=== PATIENT | male | born 1970 | race Caucasian/White ===

== ENCOUNTER 2024-11-18 18:21 | Emergency (ER) | payer SELFPAY ==
[2024-11-18 18:23] VITALS: BP 106/85
[2024-11-18 18:52] LABS: Hematocrit 42.1 % (39.0-52.0); Hemoglobin 14.9 g/dL (13.0-18.0); Mean Corp Hgb Conc. 35.4 g/dL (33.0-37.0); Mean Corpuscular Volume 80.0 fL (80.0-94.0); Nucleated Red Blood Cells % 0 % (-); Platelet Count 183 10^3/uL (130-400); Red Cell Dist. Width 12.9 % (11.5-14.5)
[2024-11-18 19:05] VITALS: BMI 33.7
[2024-11-18 19:07] LABS: COVID-19 Antigen Negative (Negative)
[2024-11-18 19:10] VITALS: BP 131/87
[2024-11-18 19:19] LABS: ALT (SGPT) 44 U/L (0-50); AST (SGOT) 38 U/L (17-59); Albumin 4.5 g/dl (3.5-5.0); Alkaline Phosphatase 71 U/L (38-126); Blood Urea Nitrogen 11 mg/dl (9-20); Calcium 8.9 mg/dl (8.4-10.2); Carbon Dioxide 21 mmol/L (22-30); Chloride 103 mmol/L (98-107); Estimated Creatinine Clearance > 125 ml/min; Glucose 163 mg/dl (70-99); Potassium 3.9 mmol/L (3.5-5.1); Sodium 133 mmol/L (135-145); Total Protein 7.2 g/dl (6.3-8.2); eGFR > 60.00
[2024-11-18] MEDS: ATIVAN 0.5 MG PO (20:14)
[2024-11-18] MEDS: TORADOL 30 MG IV (20:14)
[2024-11-18] MEDS: NSS 500 IV (20:16)
[2024-11-18 21:00] VITALS: BP 125/81
--- NOTE | 2024-11-18 21:18 | ED.GENMED ---
History of Present Illness
<Kiana Moody NP - Last Filed: 11/20/24 23:37>
General
Chief Complaint: Fever
Source: patient
Exam Limitations: none
Time Seen by Provider: 11/18/24 19:29
Nursing documentation reviewed up to this point in time: agreed with
History of Present Illness
History of Present Illness:
Patient to ED with report of weakness, chills, diaphoresis, headache. States his and son had similar symptoms earlier this week. He started to feel sick on Tuesday. reports he did not get off couch at all yesterday. Poor appetite but
drinking. Denies n/v/d. No abdominal pain. Denies SOB, CP/pressure, cough.
Past History
<Kiana oMody NP - Last Filed: 11/20/24 23:37>
Past History
ED Past Medical History: CAD, HTN, NIDDM and Psychiatric (anxiety, ADHD)
ED Past Surgical History: Cardiac (stents)
Review of Systems
<Kiana Moody NP - Last Filed: 11/20/24 23:37>
Review of Systems
Allergies reviewed?: Yes
All Other Systems: ROS reviewed and negative except as documented in HPI and ROS
Constitutional: Reports fever, fatigue and chills
EENT: Reports no symptoms
Cardiac: Reports no symptoms
ABD/GI: Reports no symptoms
: Reports no symptoms
Musculoskeletal: Reports no symptoms
Skin: Reports no symptoms
Neurological: Reports headache and weakness
Psychiatric: Reports no symptoms
Phy Exam
<Kiana Moody NP - Last Filed: 11/20/24 23:37>
General Physical Exam
General Presentation: moderate distress
General age: appears stated age
General Skin: warm and dry
General Habitus: normal
General Mental: alert
General Hydration: appears well hydrated
Eye Exam
Eye Exam: PERRL, EOMI, conjunctiva normal, globe normal and other (no photophobia)
Cardiovascular Exam
Cardiovascular Exam: regular rate/rhythm and no edema
Pulmonary Exam
Pulmonary Exam: lungs clear and no respiratory distress
Gastrointestinal Exam
Gastrointestinal Exam: normal bowel sounds, non tender, soft, no organomegaly, no pulsatile mass, non distended and no cva tenderness
Neurological Exam
Neurological Exam: alert, oriented x3, CN II-XII intact, no motor deficits, no sensory deficits and speech normal
Musculoskeletal Exam
Musculoskeletal Exam: full ROM and neuro vasc intact
Skin Exam
Skin Exam: normal color, warm/dry and no rash
Psychiatric Exam
Psychiatric Exam: normal mood/affect
Course
<Kiana Moody NP - Last Filed: 11/20/24 23:37>
Orders/Labs/Results
Orders:
Orders
11/18/24 18:28
Electrocardiogram (*1) Urgent
Reason for Study: Other
Other Reason for Exam: Possible Sepsis
11/18/24 18:29
EKG- Treatment ONCE
11/18/24 18:47
COVID-19 Antigen Urgent
Source: Nasal Swab
Complete Blood Count/With Diff Urgent
Comprehensive Metabolic Panel Urgent
Lactic Acid Q4H
Comment: ON ICE, CANCEL 2ND ORDER IF FIRST LACTIC ACID LEVEL <2
INF RAPID [Influenza A+B Rapid Molecular] Urgent
BARBARA Source: Nasal Swab
Specimen Description:
11/18/24 19:57
0.9% Sodium Chloride 500 ml [Nss] 500 ml IV BOLUS
Ketorolac [Toradol] 30 mg IV NOW STA
Lorazepam [Ativan] 0.5 mg PO NOW STA
11/18/24 20:50
CT Head W/o Iv Contrast Urgent
Comment:
Reason For Exam: atypical headache
11/18/24 20:58
US Abdomen Complete/Upper Urgent
Comment:
Reason For Exam: fever, elevated Tbili
11/18/24 22:01
0.9% Sodium Chloride 1000 ml [Nss] 1,000 ml IV BOLUS
Acetaminophen [Tylenol] 1,000 mg PO NOW STA
Abnormal Lab Results
11/18/24
18:47
Absolute Neuts (auto) 6.9 H 10^3/uL
(1.4-6.5)
Absolute Lymphs (auto) 0.9 L 10^3/uL
(1.2-3.4)
Absolute Monos (auto) 0.7 H 10^3/uL
(0.1-0.6)
Neutrophils % 80.7 H %
(42.2-75.2)
Lymphocytes % 10.1 L %
(20.5-51.1)
Sodium 133 L mmol/L
(135-145)
Carbon Dioxide 21 L mmol/L
(22-30)
Creatinine 0.6 L mg/dL
(0.7-1.3)
Glucose 163 H mg/dl
(70-99)
Total Bilirubin 2.6 H mg/dl
(0.2-1.3)
11/18/24 18:47
11/18/24 18:47
Vital Signs
Initial and Last Documented VS:
Initial Vital Signs
Temp Pulse Resp BP Pulse Ox
100.4 F H 106 20 106/85 98
11/18/24 18:23 11/18/24 18:23 11/18/24 18:23 11/18/24 18:23 11/18/24 18:23
Last Documented Vital Signs
Temp Pulse Resp BP Pulse Ox
100.4 F H 72 17 103/68 96
11/18/24 18:23 11/19/24 00:00 11/19/24 00:00 11/18/24 22:39 11/18/24 22:39
<Joseph Moreland, DO - Last Filed: 11/19/24 00:04>
Orders/Labs/Results
Orders:
Orders
11/18/24 18:28
Electrocardiogram (*1) Urgent
Reason for Study: Other
Other Reason for Exam: Possible Sepsis
11/18/24 18:29
EKG- Treatment ONCE
11/18/24 18:47
COVID-19 Antigen Urgent
Source: Nasal Swab
Complete Blood Count/With Diff Urgent
Comprehensive Metabolic Panel Urgent
Lactic Acid Q4H
Comment: ON ICE, CANCEL 2ND ORDER IF FIRST LACTIC ACID LEVEL <2
INF RAPID [Influenza A+B Rapid Molecular] Urgent
BARBARA Source: Nasal Swab
Specimen Description:
11/18/24 19:57
0.9% Sodium Chloride 500 ml [Nss] 500 ml IV BOLUS
Ketorolac [Toradol] 30 mg IV NOW STA
Lorazepam [Ativan] 0.5 mg PO NOW STA
11/18/24 20:50
CT Head W/o Iv Contrast Urgent
Comment:
Reason For Exam: atypical headache
11/18/24 20:58
US Abdomen Complete/Upper Urgent
Comment:
Reason For Exam: fever, elevated Tbili
11/18/24 22:01
0.9% Sodium Chloride 1000 ml [Nss] 1,000 ml IV BOLUS
Acetaminophen [Tylenol] 1,000 mg PO NOW STA
Abnormal Lab Results
11/18/24
18:47
Absolute Neuts (auto) 6.9 H 10^3/uL
(1.4-6.5)
Absolute Lymphs (auto) 0.9 L 10^3/uL
(1.2-3.4)
Absolute Monos (auto) 0.7 H 10^3/uL
(0.1-0.6)
Neutrophils % 80.7 H %
(42.2-75.2)
Lymphocytes % 10.1 L %
(20.5-51.1)
Sodium 133 L mmol/L
(135-145)
Carbon Dioxide 21 L mmol/L
(22-30)
Creatinine 0.6 L mg/dL
(0.7-1.3)
Glucose 163 H mg/dl
(70-99)
Total Bilirubin 2.6 H mg/dl
(0.2-1.3)
11/18/24 18:47
11/18/24 18:47
Vital Signs
Initial and Last Documented VS:
Initial Vital Signs
Temp Pulse Resp BP Pulse Ox
100.4 F H 106 20 106/85 98
11/18/24 18:23 11/18/24 18:23 11/18/24 18:23 11/18/24 18:23 11/18/24 18:23
Last Documented Vital Signs
Temp Pulse Resp BP Pulse Ox
100.4 F H 72 17 103/68 96
11/18/24 18:23 11/19/24 00:00 11/19/24 00:00 11/18/24 22:39 11/18/24 22:39
<Kiana Moody NP - Last Filed: 11/20/24 23:37>
*Pulse Oximetry
SaO2: 99
Oxygen Mode of Delivery: Room air
Patient hypoxic: no
*Critical Care Note
Total Time (30-74mins, 75-104mins- exclusive of procedures): Not Applicable
<Kiana Moody NP - Last Filed: 11/20/24 23:37>
Update Note
Update Note:
Patient to ED wtih report of fever/chills, fatigue, headache, sweating. On arrival, temp 100.4. He has not taken any tylenol or ibuprofen. Given IVF, toradol in ED. He is extremely anxious, unable to sit still. Given dose of po ativan and
appears much more calm. Labs reviewed. WBC 8.5. Tbili of 2.9 noted. No prior history of elevation. He had outpatinet labs on 11/14. Tbili at that time 0.9. WIll send for US. CT ordered for head symptoms. No neck pain, no skin rash.
Improved with IV fluids. Lying in bed reading his phone. Headache improved but still present. WIll give tylenol now.
ED Attending Note
<Kiana Moody NP - Last Filed: 11/20/24 23:37>
-
Portions of this chart may have been created with voice recognition software.� Occasional wrong word or��sound alike� substitutions may have occurred due to the inherent limitations of voice recognition software.
<Joseph Moreland DO - Last Filed: 11/19/24 00:04>
ED Attending Note
Patient seen and examined by attending physician: Yes
ED Attending Note:
This a pleasant 54-year-old male presents emergency department with fever fatigue weakness. He reports that his family had similar symptoms last week. Patient had an elevated total bilirubin but denies any abdominal pain. Ultrasound showed
cholelithiasis without evidence for cholecystitis. On repeat exam patient is not tender to palpation in the right upper quadrant at this point patient will be discharged home with viral illness. Patient was seen in conjunction with the nurse
practitioner. I have reviewed and agree with her history and treatment plan.
Discharge Plan
Departure
Patient Disposition: Home (Routine Discharge)
Date of Disposition: 11/19/24
Time of Disposition: 00:05
Patient with high blood pressure during this ER visit?: No
Condition: Good
Covid-19: Not Applicable
Discharge Problem:
Viral illness
Instructions: Fatigue (DC), Fever, Adult (DC), Viral Syndrome (DC), Weakness - ED (DC)
Referrals:
NONE,* [Family Provider, Internal Medicine]
Activity Restrictions/Additional Instructions:
Follow up with your family doctor. Return to the emergency department immediately for any changes in/worsening of your symptoms
Interventions
Interventions:
*Risk Screen - Suicide Last Done: 11/18/24 18:23
*General Assessment Last Done: 11/18/24 19:06
*Neglect/Abuse Screening Last Done: 11/18/24 19:06
*ED- Fall Risk Assessment Last Done: 11/18/24 19:06
*ED COVID-19 Vaccine History Last Done: 11/18/24 19:06
*Nursing Disposition Last Done: 11/19/24 01:04
ED- Neurological Assessment Last Done: 11/18/24 19:07
ED-Skin Assessment Last Done: 11/18/24 19:07
Discharge Date and Time
Discharge Date/Time: 11/19/24 01:07
Print Language: TANZANIAN
[2024-11-18] MEDS: TYLENOL 1000 MG PO (22:35)
[2024-11-18] MEDS: NSS 1000 IV (22:36)
[2024-11-18 22:39] VITALS: BP 103/68
== END 2024-11-19 01:07 | disposition home or self-care (01) ==
LOC: EMR 18:21
PROVIDERS: EMERGENCY PHYSICIAN Emergency Medicine
DX: B34.9 Viral infection, unspecified (principal); K80.20 Calculus of gallbladder without cholecystitis without obstruction; E11.9 Type 2 diabetes mellitus without complications; I25.10 Atherosclerotic heart disease of native coronary artery without angina pectoris; I10 Essential (primary) hypertension; F41.9 Anxiety disorder, unspecified; F90.9 Attention-deficit hyperactivity disorder, unspecified type; Z95.5 Presence of coronary angioplasty implant and graft
CPT/HCPCS: 99284; 96374; 96361 ×2; 70450; 76700; 80053; 83605; 85025; 87502; 87811; 93005

== ENCOUNTER 2024-11-22 09:53 | Inpatient (IN) | payer BC, SELFPAY ==
[2024-11-21] VITALS (10 sets, daily range): BP systolic 106–158; BP diastolic 57–108; BMI 36.5; BMI 33.7
--- NOTE | 2024-11-21 12:53 | EDRN ---
Pt arrived in ER and was checking in at registration desk, This RN asked patient what symptoms brought him to the ER. Pt raised voice and this RN and stated ' I spent hours talking to your patient advocate and she was letting you know'. This RN
calmly spoke with patient and informed him that we were made aware and that was confirming his symptoms. Pt then became agitated and yelled ' I am here for what I was last here for last time and you all did nothing for me and I am not better'. Pt
taken into triage room by dictaphone technician to be triaged.
--- NOTE | 2024-11-21 13:43 | ED.GENMED ---
History of Present Illness
General
Chief Complaint: Fever
Time Seen by Provider: 11/21/24 13:12
Nursing documentation reviewed up to this point in time: agreed with
History of Present Illness
History of Present Illness:
54-year-old male presents to the ER for reevaluation of fever, chills, poor p.o. intake and headache. Patient denies any nausea or vomiting. He states he has not had anything to eat in the last 6 days but has been able to drink at least 64 ounces
of water daily. He reports decreased urine output. He reports having regular bowel movements-several small bowel movements daily which is his usual routine. He denies rash. He denies cough or cold symptoms. He denies sore throat. He reports
diffuse headache which has improved with Tylenol. He was in the ER 2 days ago and states that when he took his temperature at home that night it was 101. That was the last time it was above 100, although patient has been taking Tylenol routinely.
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 He is very concerned that there is something wrong with his chest as he has a persistent feeling of
chest tightness in his left chest. He admits to feeling severely anxious and very upset that he did not receive appropriate treatment on his prior ER visit. Patient does have significant prior medical history including anxiety, autism spectrum
disorder, CAD status post stenting and diabetes.
We reviewed all of his ER visit results-he was COVID and flu negative, patient reports that he does not believe he had an adequate swab at that time. Blood work was reassuring other than mild elevation in T. bili. Ultrasound had been performed
showing mild hepatomegaly with fatty infiltration, cholelithiasis, no evidence for acute cholecystitis, no biliary ductal dilatation.
Past History
Past History
ED Past Medical History: CAD, HTN, NIDDM and Psychiatric (anxiety, ADHD)
ED Past Surgical History: Cardiac (stents)
Review of Systems
Review of Systems
Allergies reviewed?: Yes
Phy Exam
Physical Exam
Physical Exam:
Patient is awake, alert, emotionally upset, agitated, poor eye contact, head is NCAT, PERRL, sclera anicteric, EOMI mucous membranes moist, conjunctiva pink, heart regular rate and rhythm without murmurs or ectopy, lungs are clear to auscultation
without wheezes rales or rhonchi, no JVD, abdomen is soft and nontender on palpation, extremities without edema, GCS is 15, moving all extremities symmetrically without focal deficit, no photophobia, moving neck easily in all directions without
limitation
Course
Orders/Labs/Results
Orders:
Orders
11/21/24 12:56
EKG [Electrocardiogram (*1)] Urgent
Reason for Study: Tachycardia
11/21/24 12:57
EKG- Treatment ONCE
11/21/24 13:34
Cardiac Monitoring- Treatment ONCE
IV Insert/Care/Rem.- Treatment PRN
0.9% Sodium Chloride 1000 ml [Nss] 2,000 ml IV NOW STA
Pulse Ox/cont/shift [RESP] Urgent
Quantity: 1
11/21/24 13:36
Ketorolac [Toradol] 15 mg IV NOW STA
Lorazepam [Ativan] 1 mg PO NOW STA
11/21/24 13:57
COVID-19 Antigen Urgent
Source: Nasal Swab
Complete Blood Count/With Diff Urgent
Comprehensive Metabolic Panel Urgent
Lactic Acid Q4H
Comment: CANCEL 2nd LACTIC ACID IF 1st LACTIC ACID IS LESS THAN 2
Monotest Urgent
Comment: ADD ON
Troponin I Q3H
Influenza A+B Rapid Molecular Urgent
BARBARA Source: Nasal Swab
Specimen Description:
11/21/24 13:58
PTT Urgent
Prothrombin Time Urgent
Blood Culture Q30M
BARBARA Source: Blood/Venous
Specimen Description:
11/21/24 14:15
Blood Culture Q30M
BARBARA Source: Blood/Venous
Specimen Description:
11/21/24 15:06
CT Chest/abd/pel W Iv Cont Urgent
Comment:
Reason For Exam: fever
11/21/24 15:07
Add On- LAB Urgent
Tests Added?: monotest
11/21/24 15:25
Urinalysis Reflex To Culture Urgent
Date Specimen was Collected: 11/21/24
Time Specimen was Collected: 13:38
11/21/24 15:26
Piperacillin/Tazo 4.5 Gram [Zosyn] 4.5 gram in 100 ml IV NOW
11/21/24 15:27
Vancomycin [Vancocin] 2,000 mg 0.9% Sodium Chloride 500 ml [Nss] 500 ml IV NOW
11/21/24 16:45
Troponin I Q3H
11/21/24 17:45
Lactic Acid Q4H
Comment: CANCEL 2nd LACTIC ACID IF 1st LACTIC ACID IS LESS THAN 2
Abnormal Lab Results
11/21/24
13:57
WBC 4.2 L 10^3/uL
(4.8-10.8)
MCV 79.2 L fL
(80.0-94.0)
Absolute Lymphs (auto) 0.8 L 10^3/uL
(1.2-3.4)
Immature Gran % 0.7 H %
(0-0.5)
Lymphocytes % 20.0 L %
(20.5-51.1)
Sodium 134 L mmol/L
(135-145)
Potassium 3.3 L mmol/L
(3.5-5.1)
BUN 8 L mg/dl
(9-20)
Creatinine 0.6 L mg/dL
(0.7-1.3)
Glucose 143 H mg/dl
(70-99)
Total Bilirubin 2.1 H mg/dl
(0.2-1.3)
AST 67 H U/L
(17-59)
ALT 73 H U/L
(0-50)
11/21/24 13:57
11/21/24 13:57
Reassuring CBC. Preserved kidney function. Minimal hypokalemia seen. Blood sugar without significant elevation. AST ALT mildly elevated. Similar bilirubin to 2 days ago. Minimal elevation in troponin seen. COVID and flu swab negative.
Vital Signs
Initial and Last Documented VS:
Initial Vital Signs
Temp Pulse Resp BP Pulse Ox
99.9 F 144 20 122/94 98
11/21/24 12:50 11/21/24 12:50 11/21/24 12:50 11/21/24 12:50 11/21/24 12:50
Last Documented Vital Signs
Temp Pulse Resp BP Pulse Ox
99.9 F 144 20 122/94 98
11/21/24 12:50 11/21/24 12:50 11/21/24 12:50 11/21/24 12:50 11/21/24 13:53
MDM/Problems Addressed
Differential Diagnosis Includes:
Differential diagnosis to consider but not limited to viral syndrome, COVID, flu, dehydration, occult bacterial infection along with other etiologies considered
Chronic conditions affecting care:
Diabetes, CAD
*Pulse Oximetry
SaO2: 98
Oxygen Mode of Delivery: Room air
Patient hypoxic: no
*EKG
Interpreted by ED Provider?: Yes (I independently viewed and interpreted twelve-lead EKG showing sinus tachycardia, rate 118, normal axis, no ST elevation, inferior Q waves, this is a nonspecific abnormal tracing with new T wave inversion lead III,
otherwise similar to EKG from 11/18/2024)
*Psychiatric Orderly Interpretation
Rate: tachycardiac (I independently viewed and interpreted rhythm strip showing sinus tachycardia, no ectopy)
*Critical Care Note
Total Time (30-74mins, 75-104mins- exclusive of procedures): Not Applicable
Update Note
Update Note:
I discussed with patient state of emotional upset related to his illness. He is agreeable for dose of Ativan along with Toradol for headache and IV fluids while awaiting test results. Will reassess
1500: I reviewed with patient very reassuring workup so far. Patient is not reassured. I discussed with him benefit of CT chest abdomen and pelvis for further evaluation given described persistent fever and now mild elevation in LFTs which could
be multifactorial in etiology. Given patient's reported inability to eat for the last 6 days along with personal history of CAD and diabetes, I discussed with him benefit of admission for IV antibiotics pending blood culture results at a minimum.
Patient agrees with plan for further workup. I reviewed full patient presentation with the hospitalist who accepts patient for admission for further treatment with CT chest abdomen pelvis pending at the current time
ED Attending Note
-
Portions of this chart may have been created with voice recognition software.� Occasional wrong word or��sound alike� substitutions may have occurred due to the inherent limitations of voice recognition software.
Discharge Plan
Departure
Patient Disposition: Admit
Date of Disposition: 11/21/24
Time of Disposition: 15:33
Presentation/result/management discussed w/ accepting MD/DO: Hospitalist
Discharge Problem:
Fever, Unable to eat
Referrals:
Andrea Flores MD [Family Provider]
Discharge Date and Time
Print Language: BHUTANESE
[2024-11-21] MEDS: ATIVAN 1 MG PO ×2 (13:44→20:40)
[2024-11-21 14:05] LABS: Hematocrit 40.8 % (39.0-52.0); Hemoglobin 14.4 g/dL (13.0-18.0); Mean Corp Hgb Conc. 35.3 g/dL (33.0-37.0); Mean Corpuscular Volume 79.2 fL (80.0-94.0); Nucleated Red Blood Cells % 0 % (-); Platelet Count 163 10^3/uL (130-400); Red Cell Dist. Width 12.8 % (11.5-14.5)
[2024-11-21] MEDS: NSS 2000 ML IV (14:11)
[2024-11-21] MEDS: TORADOL 15 MG IV (14:11)
[2024-11-21 14:19] LABS: APTT 32.6 Sec (23.4-35.0); INR 1.07; PT 14.4 Sec (11.4-14.6)
[2024-11-21 14:31] LABS: COVID-19 Antigen Negative (Negative)
[2024-11-21 14:35] LABS: Troponin I 0.024 ng/ml
[2024-11-21 14:36] LABS: ALT (SGPT) 73 U/L (0-50); AST (SGOT) 67 U/L (17-59); Albumin 4.1 g/dl (3.5-5.0); Alkaline Phosphatase 71 U/L (38-126); Blood Urea Nitrogen 8 mg/dl (9-20); Calcium 9.0 mg/dl (8.4-10.2); Carbon Dioxide 25 mmol/L (22-30); Chloride 101 mmol/L (98-107); Glucose 143 mg/dl (70-99); Potassium 3.3 mmol/L (3.5-5.1); Sodium 134 mmol/L (135-145); Total Protein 6.6 g/dl (6.3-8.2); eGFR > 60.00
[2024-11-21 15:33] LABS: Urine Character Clear (Clear)
--- NOTE | 2024-11-21 15:38 | HPS.HSE ---
Family Physician
-
Family Physician: Andrea Flores MD
Chief Complaint
-
Frontal headache, fever, decreased oral intake, chronic abdominal pain
History of Present Illness
54-year-old male complaining of of nasal congestion with sore throat that started 11/13/2024 along with his having the same symptoms but hers resolved within a few days. He reports then 2 days later he had chills, fever, extreme lethargy,
diaphoresis. He reports he was only able to get out of bed to change the sheets that were soaked in his own sweat. He did not think to take a temperature to evaluate for fever. He felt that he was very confused and out of it for over those 4 days
along with, poor p.o. intake, frontal headache. He is unsure how many days he has had a fever with temp up to 101F. 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
He reports things became extremely intense 4 months ago with that job as he is the sole provider and has no education background to support his family. He states he was diagnosed with autism ADHD at age 32 and did not receive any prior treatment
for that. He has also been complaining of years of chest tightness irregular heartbeats for which he sees [facility] Dr. Juarez in [place] but goes to [facility]. He was seen in the ED 2 days ago 11/19/2024 for fever,
fatigue and weakness. He has chronic abdominal pain, swallowing from taking GLP-1 medications over the past 10 to 15 years. He is unsure and has had several workups for unknown type of chronic abdominal pain. When he was seen in the ER 3 days ago
had ultrasound showing cholelithiasis without cholecystitis he was not tender to right upper quadrant pain. It also showed mild hepatomegaly with fatty infiltration. He did have T. bili elevation of 2.9 which is now 2.1. He is frustrated that he
still does not have a diagnosis yet he still having headaches and fever. He denies any recent rash, tick bites, joint swelling. He states he has not taken his medications in several days and his chronic joint pain feels better however he states he
has history of uncontrolled HLD history of cardiac stents and needs to go back on them as He is scheduled for outpatient stress test and echo next week.
The patient has past medical history of CAD/cardiac stents, HTN, HLD, DM 2, anxiety, ADHD, autism spectrum disorder, class II obesity, hypomagnesemia, chronic abdominal pain
Medical History
Past Medical History
Past Medical History: Reports Other
Additional Past Medical History:
CAD/cardiac stents
HTN
HLD
DM 2
anxiety
ADHD
autism spectrum disorder Dx age 32
class II obesity
hypomagnesemia
chronic abdominal pain unclear etiology thought to be GLP's
Past Surgical History: Reports Other
Additional Past Surgical History:
Right femur repair
Cardiac stents x 2 or 3
Social History
Tobacco: Non-smoker
Alcohol: None
Drug: None
Personal:
Living: With Family ( and 3 kids that have disabilities)
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
Family History
Family History: Not pertinent
Allergies / Home Medications
Allergies reflects when Allergies were last updated in [employer].
Home Medications with original date entered in [employer]
Allergy/Medication List:
Allergies
Allergy/AdvReac Type Severity Reaction Status Date / Time
No Known Allergies Allergy Verified 11/18/24 18:22
Home Medications
aspirin 81 mg chewable tablet 81 mg PO DAILY 11/21/24
cetirizine 10 mg tablet 10 mg PO DAILY PRN ALLERGIES 11/21/24
cholecalciferol (vitamin D3) 25 mcg (1,000 unit) tablet (Vitamin D3) 25 mcg PO DAILY 11/21/24
coenzyme Q10 200 mg capsule (Co Q-10) 200 mg PO DAILY 11/21/24
cyanocobalamin (vitamin B-12) 1,000 mcg/mL injection solution 100 mcg IM QMONTH 11/21/24
diltiazem HCl 120 mg capsule,extended release 24 hr, controlled (DILT-XR) 120 mg PO DAILY 11/21/24
duloxetine 60 mg capsule,delayed release 60 mg PO BID 11/21/24
empagliflozin 25 mg tablet (Jardiance) 25 mg PO DAILY 11/21/24
fluticasone propionate 50 mcg/actuation nasal spray,suspension 1 spray intranasal DAILY PRN CONGESTION 11/21/24
icosapent ethyl 1 gram capsule 1 g PO BID 11/21/24
levothyroxine 125 mcg tablet (Synthroid) 125 mcg PO DAILY 11/21/24
lorazepam 1 mg tablet 1 mg PO DAILYPRN PRN anxiety 11/21/24
spironolactone 25 mg-hydrochlorothiazide 25 mg tablet 1 tab PO DAILY 11/21/24
therapeutic multivitamin 1 tab PO DAILY 11/21/24
tirzepatide 7.5 mg/0.5 mL subcutaneous pen injector (Mounjaro) 7.5 mg SC FR 11/21/24
Review of Systems
-
History Source: Patient
A 12 point ROS was completed and negative except as noted: Yes
Constitutional: Reports Chills; Denies Fatigue
EENT: Denies Sore Throat or Runny Nose
Respiratory: Denies Cough or Trouble Breathing
Cardiac: Reports Chest Pain (Chronic tightness left upper chest with reported feeling irregular beats); Denies Diaphoresis or Syncope
Abdomen/GI: Reports Abdominal Pain (Chronic generalized starts when he swallows or drinks food) and Other (Decreased appetite x 6 days); Denies Nausea, Vomiting or Diarrhea
: Denies Dysuria, Frequency, Flank Pain or Incontinence
Musculoskeletal: Denies Joint Pain or Edema
Skin: Denies Itching or Rash
Neurological: Reports Headache (Frontal); Denies Dizzy or Weakness
Endocrine: Reports No Symptoms
Hematologic/Lymphatic: Reports No Symptoms
Psych: Reports Anxiety (Agitated yelling at providers)
Physical Exam
Vital Signs
Vital Signs
Temp Pulse Resp BP Pulse Ox
99.9 F 144 20 122/94 98
11/21/24 12:50 11/21/24 12:50 11/21/24 12:50 11/21/24 12:50 11/21/24 13:53
Physical Exam
General: Conversant and Pain (Headache); No Fever or Chills
HEENT: NormoCephalic, Anicteric, Moist mucous membranes, PERRLA, [place] Conjunctivae, No Ptosis, Neck Nontender and Other (No nuchal rigidity)
Respiratory: Clear; No Wheezes, Rales or Rhonchi
Cardiac: S1/S2 and Irregular Rhythm (Sinus tach 144 bpm); No Murmur, Rub, Gallop or Peripheral Edema
Breast: Deferred by me
GI: Soft, Non Tender, Non Distended and Normal Bowel Sounds
Genito-urinary: Deferred by me
Musculoskeletal: No Clubbing, No Cyanosis and No Edema
Skin: Warm and Dry; No Rash
Neuro: AO x 3, No Motor Deficits, Nonfocal/grossly intact, Cranial Nerves Intact and No Sensory Deficits; No Slurred Speech, Facial Droop, Tremors or Sedated
Psych: Agitated and Anxious
Laboratory Results
-
11/21/24 13:57
11/21/24 13:57
Laboratory Results
PT 14.4 Sec (11.4-14.6) 11/21/24 13:58
INR 1.07 11/21/24 13:58
APTT 32.6 Sec (23.4-35.0) 11/21/24 13:58
Lactic Acid 1.3 mmol/L (0.7-2.0) 11/21/24 13:57
Total Bilirubin 2.1 mg/dl (0.2-1.3) H 11/21/24 13:57
AST 67 U/L (17-59) H 11/21/24 13:57
ALT 73 U/L (0-50) H 11/21/24 13:57
Alkaline Phosphatase 71 U/L (38-126) 11/21/24 13:57
Troponin I 0.024 ng/ml 11/21/24 13:57
Impression/Plan
-
Impression/plan:
Observation telemetry
#Acute febrile illness unclear etiology
99.9 F, HR 144, 122/94
COVID/influenza negative
-Check Monospot
- Blood cultures x 2, check magnesium
- IV NSS 2 L given in ER
- IV vancomycin IV Zosyn given in ER will hold further dosing
- CT chest abdomen pelvis pending
- Consult ID
#Acute tachycardia likely secondary to acute anxiety/agitation
History of anxiety/autism spectrum
HR 144
Patient was given Ativan in ER
- Continue Cymbalta, lorazepam 1 mg daily as needed anxiety
#Chronic ongoing chest pain
#CAD/cardiac stents x 2�3
[facility] Dr. Juarez in [place] but goes to [facility].
Patient is due for nuclear stress test and echo next week
-Patient requesting cardiac consult will consult [facility] cardiology
#Acute transaminitis likely reactive
History of mild hepatomegaly with fatty infiltration per recent ultrasound 11/18/2024
- Follow CMP
#Acute hypokalemia 2/2 volume depletion
K3.3
-KCl rider 20 mEq
Patient has not taken spironolactone/HCTZ since 11/14/2024
#HTN
-Continue diltiazem XR 120 mg daily
#History of chronic abdominal pain unknown etiology
Reports has been many specialist has had 3 gastric emptying studies with no abnormal results
#DM 2
Accu-Cheks with SSI, check HgbA1c
Hold Jardiance as patient is not eating
- Patient on Mounjaro last dose 7.5 mg subcu 11/14/2024
#HLD
- Patient is on icosapent ethyl 1 g p.o. twice daily
#Hypothyroidism
Continue Synthroid 125 mcg p.o. daily
#Class II obesity�BMI 36.5
Patient is on Mounjaro however states is on it for diabetic control
#Seasonal allergies
Patient takes cetirizine 10 mg daily as needed along with nasal spray
DVT prophylaxis
SCDs
Full code
[2024-11-21] MEDS: ZOSYN 100 IV (16:53)
--- NOTE | 2024-11-21 17:04 | W.PN.UPDATE ---
Update Note
Progress Note Update
HPI: 54-year-old male with PMH CAD s/p cardiac stents, HTN, NIDDM, anxiety, ADHD; p/w fever, chills/night sweats, and chest pain/discomfort, ongoing for several days.
He stated that his and his son recently experienced nasal congestion which were attributed to allergy symptoms; their symptoms resolved after taking allergy medications.
A/P:
# fever, unclear etiology
COVID/influenza negative, Monospot negative
Follow Blood cultures x 2
Cover with empiric Abx vancomycin and Zosyn
# Chest discomfort
# H/o ACS s/p several cardiac stents
# Mild troponin elevation
Cont to trend troponin with EKG
Check echo
Card CS
# History of anxiety/autism
s/p Ativan in ER
Continue Cymbalta, lorazepam 1 mg daily as needed anxiety
# Acute transaminitis likely reactive
Monitor
# Hypokalemia
replete
# HTN
Continue diltiazem XR 120 mg daily
# NIDDM
Cover with Accu-Cheks with SSI,
check HgbA1c
Hold Jardiance / DEFECT CUTTER Mounjaro currently
# HLD
# Hypothyroidism
Continue Synthroid 125 mcg p.o. daily
# Obesity with BMI 36.5
# Seasonal allergies
DEFECT CUTTER cetirizine 10 mg daily PRN and nasal spray PRN
DVT prophylaxis: lovenox SQ
Full code
updated on the phone
[2024-11-21] MEDS: VANCOCIN 540 MG IV (17:24)
[2024-11-21 17:29] LABS: Troponin I 0.023 ng/ml
--- NOTE | 2024-11-21 19:56 | PTCARENOTE ---
Pt received from [id number] to rm [id number]. Pt oriented to room and call hunter.
[2024-11-21] MEDS: TYLENOL 650 MG PO (20:00)
[2024-11-21] MEDS: CYMBALTA DELAYED RELEASE 60 MG PO (20:00)
[2024-11-21 20:03] LABS: Magnesium 1.8 mg/dl (1.6-2.3)
[2024-11-21] MEDS: NSS 1000 IV (20:05)
[2024-11-21] MEDS: KCL 260 MEQ IV (20:06)
[2024-11-21] MEDS: LOVENOX 40 MG SC (20:06)
[2024-11-21 21:37] LABS: Glucose - Point of Care 151 mg/dl (70-99)
[2024-11-22] VITALS (7 sets, daily range): BP systolic 117–172; BP diastolic 63–101; BMI 33.7
--- NOTE | 2024-11-22 02:08 | PTCARENOTE ---
Pt anxious, agitated and asking for more ativan. Pt had already received ativan at 2039 as well as in ED and ativan is order daily PRN. House TOWEL INSPECTOR made aware and ordered Offirmev, which pt refused. TOWEL INSPECTOR then ordered IV valium, which pt again refused
and pt became more agitated, stating 'I have an anxiety disorder as well as 16 other conditions, and I'm not getting any sleep and it's making me worse.' Pt then demanding to speak with TOWEL INSPECTOR. TOWEL INSPECTOR up to see pt at this time.
[2024-11-22] MEDS: ATIVAN 1 MG PO (02:16)
--- NOTE | 2024-11-22 03:23 | W.PN.UPDATE ---
Update Note
Progress Note Update
Patient requesting another dose of Ativan stating he is having panic and his cardiac status warrants these episodes be taken care of immediately. Upset I offered Ofirmiv IV (belief his aches from what appears to be viral syndrome would improve
helping him to calm down) I offered Valium IV since in my opinion the doses of Ativan he has received were not effective. He proceeded to tell me I should read up on neuro divergent people and how to deal with them. Explained there were parameters
to follow. I asked security to be with me during my second discussion. I reviewed his medication list with him. Explained I changed the Ativan 1 mg to q4 prn. A dose was given to him by his nurse.
[2024-11-22] MEDS: TYLENOL 650 MG PO ×2 (04:30→19:56)
[2024-11-22] MEDS: SYNTHROID 125 MCG PO (04:30)
--- NOTE | 2024-11-22 07:26 | CON.CAR ---
Addendum entered and electronically signed by Avtar Wilson MD 11/22/24 13:38:
54-year-old man with history of CAD and PCI in 2017 admitted with fever chills and change in mental status. We are asked to see regarding detectable troponin
PMH: CAD/PCI, details unknown, hypertension, hyperlipidemia, type 2 diabetes, anxiety, ADHD, autism spectrum, obesity, chronic abdominal pain
Medications: Aspirin 81 mg a day, diltiazem CD1 120 mg a day, Cymbalta, levothyroxine 125 mcg daily, Lovenox, Zosyn, vancomycin
120/76, pulse 78, respiratory rate 16, currently afebrile, Tmax 38.7, no acute distress, head neck exam unremarkable, lungs are clear, abdomen somewhat tender, extremities without clubbing cyanosis or edema distal pulses intact
CT of chest abdomen and pelvis: Coronary stent identified, hepatomegaly, splenomegaly, periaortic lymphadenopathy, up to 2.6 cm
White count 3.9, monocytosis, BUN/creatinine are 5 and 0.5, potassium is 3.6, AST 66, ALT 70, troponin trending down to 0.15
Blood cultures: Pending
ECG sinus tachycardia, possible prior inferior AR, nonspecific ST changes
Impression:
chest pain
CAD s/p stenting
HTN
hyperlipidemia
abdominal pain
fever
DM type 2
autism spectrum d/o
anxiety
ADHD
obesity
chonic abdominal pain
hypomagnesemia
Plan:
He presents with chest pain that is not entirely typical for an acute coronary syndrome. However troponin is elevated. Suspect nonischemic myocardial injury related to underlying fever, other complaints.
Zosyn has been stopped he is on vancomycin pending cultures. Mild LFT abnormalities, patient states he has a long history of MAFLD.
Nothing at present to suggest endocarditis etc.
Echo is pending, patient should undergo nuclear stress testing as had been ordered by his dumper mold cleaner. However I do not suspect that this we could consider performing this as an inpatient, though may be better to address whatever underlying
systemic illness is causing fever.
Original Note:
Consultation
Consultation Request
Date/Time Consultation Requested: 11/21/2024, 1658
Date/Time Consultation Performed: 11/22/2024 0730
Requesting Provider: NATHANAEL Liang
Performing Provider: NATHANAEL Chatman
Reason for Consultation: chest pain, fever
Medical History
-
Chief Complaint: chest pain
History of Present Illness:
54-year-old male with past medical history CAD, cardiac stenting ~2017, hypertension, hyperlipidemia, type 2 diabetes, anxiety, ADHD, autism spectrum disorder, class II obesity, hypomagnesemia and chronic abdominal pain. He is followed by
Larry at [facility] cardiology.
He presents to [facility] ER on 11/21/2024 with 1 week history of nasal congestion and 2-day history of chills, fever, lethargy, diaphoresis, confusion, headache. Temp up to 101. Complains of years of chest tightness with stressful situations, worse in
past weeks. He's had other physical pains and its been difficult to determine if pain due to cardiac cause or other cause. He was seen by his primary dumper mold cleaner last week and is scheduled for nuclear stress test and echocardiogram next week.
He has chronic abdominal pain thought to be from GLP-1 medications over the past 10 to 15 years. He was seen in [facility] ED 11/18/2024 and had an ultrasound showing cholelithiasis without cholecystitis.
ED workup:
Troponin 0.024, 0.023, 3rd trop pending
EKG: Sinus tachycardia, inferior infarct, T wave inversions lead III.
CT chest/abdomen/pelvis with contrast: No pneumonia, no PE, no aortic aneurysm, positive coronary calcified plaque, mild diverticulosis mild hepatosplenomegaly, fatty infiltration of liver, tiny gallbladder calculus.
BUN/creatinine 8/0.6, NA 134, K3.3, mag 1.8, AST/ALT 67/73, total bilirubin 2.1, WBC 4.2, hemoglobin 14.2
Outpatient cardiac meds include aspirin 81 mg daily, diltiazem 120 mg daily, Jardiance 25 mg daily, spironolactone/hydrochlorothiazide 1 tablet daily, Mounjaro
Past medical history:
CAD status post stenting
Hypertension
Hyperlipidemia
Type 2 diabetes
Anxiety
ADHD
Autism spectrum disorder
Obesity
Hypomagnesemia
Chronic abdominal pain
Past Medical History
Past Medical History: Other (As above in HPI)
Social History
Tobacco: Former Smoker
Alcohol: None
Living: With Family
Family History
Family History: CAD (father 64 AR, stroke, GF and great GF 40s CAD)
Allergies / Home Medications
Allergy/AdvReac Type Severity Reaction Status Date / Time
No Known Allergies Allergy Verified 11/18/24 18:22
�Medication �Instructions �Recorded �Confirmed �Type
aspirin 81 mg chewable tablet 81 mg PO DAILY 11/21/24 11/21/24 History
cetirizine 10 mg tablet 10 mg PO DAILY PRN ALLERGIES 11/21/24 11/21/24 History
cholecalciferol (vitamin D3) 25 25 mcg PO DAILY 11/21/24 11/21/24 History
mcg (1,000 unit) tablet (Vitamin
D3)
coenzyme Q10 200 mg capsule (Co 200 mg PO DAILY 11/21/24 11/21/24 History
Q-10)
cyanocobalamin (vitamin B-12) 100 mcg IM QMONTH 11/21/24 11/21/24 History
1,000 mcg/mL injection solution
diltiazem HCl 120 mg 120 mg PO DAILY 11/21/24 11/21/24 History
capsule,extended release 24 hr,
controlled (DILT-XR)
duloxetine 60 mg capsule,delayed 60 mg PO BID 11/21/24 11/21/24 History
release
empagliflozin 25 mg tablet 25 mg PO DAILY 11/21/24 11/21/24 History
(Jardiance)
fluticasone propionate 50 1 spray intranasal DAILY PRN 11/21/24 11/21/24 History
mcg/actuation nasal CONGESTION
spray,suspension
icosapent ethyl 1 gram capsule 1 g PO BID 11/21/24 11/21/24 History
levothyroxine 125 mcg tablet 125 mcg PO DAILY 11/21/24 11/21/24 History
(Synthroid)
lorazepam 1 mg tablet 1 mg PO DAILYPRN PRN anxiety 11/21/24 11/21/24 History
spironolactone 25 1 tab PO DAILY 11/21/24 11/21/24 History
mg-hydrochlorothiazide 25 mg tablet
therapeutic multivitamin 1 tab PO DAILY 11/21/24 11/21/24 History
tirzepatide 7.5 mg/0.5 mL 7.5 mg SC FR 11/21/24 11/21/24 History
subcutaneous pen injector
(Sherrie)
Review of Systems
-
History Source: Patient
All other systems: Negative unless noted
Physical Exam
Vital Signs
Temp Pulse Resp BP Pulse Ox
97.7 F 91 16 125/77 96
11/22/24 03:00 11/22/24 03:00 11/22/24 03:00 11/22/24 03:00 11/22/24 03:00
Lab Results
Troponin I 0.023 ng/ml 11/21/24 16:49
GEN: No distress, awake, Ox3
HEENT: supple, anicteric, mmm
LUNGS: CTA, no wheezes/rales
CV: Reg, S1/S2,no murmur
ABD: soft, BS+, NT/ND
EXT: No edema
NEURO: Gross non-focal
SKIN: No rash
Impression / Plan
-
PCP:
Primary dumper mold cleaner: Jacqueline Reilly [phone]
Impression:
chest pain
CAD s/p stenting
HTN
hyperlipidemia
abdominal pain
fever
DM type 2
autism spectrum d/o
anxiety
ADHD
obesity
chonic abdominal pain
hypomagnesemia
Previous CV testing: awaiting records
Plan:
54-year-old male with h/o CAD, s/p cardiac stenting ~2017, hypertension, hyperlipidemia, type 2 diabetes, anxiety, ADHD, autism spectrum disorder, class II obesity, hypomagnesemia and chronic abdominal pain presents with fevers, abdominal pain and
chest tightness. Tightness precipated by stressful situations and has worsened in recent months. Troponin 0.024, 0.023, 3rd trop pending
-trend troponin
-checking echo today
-obtain records Dr Juarez
-telem NSR/ST 70s-80s, burst overnight to 140s.
-consider inpt ischemic w/u if troponins trend up. He is currently scheduled for nuclear stress test next week.
-cont ASA
-home antihypertensives:Spironolactone/HCTZ - currently on hold, Diltiazem
-intolerant of statins, was on Praluent in outpt setting, recently switched to Repatha, hasn't started yet.
He has chronic abdominal pain thought to be from GLP-1 medications over the past 10 to 15 years. He was seen in [facility] 11/18/2024 and had an ultrasound showing cholelithiasis without cholecystitis.
-fever/abd pain w/u per primary team
- he was COVID/influenza negative
- Blood cultures checked
-CT abd/pelvis No pneumonia, no PE, no aortic aneurysm, positive coronary calcified plaque, mild diverticulosis mild hepatosplenomegaly, fatty infiltration of liver, tiny gallbladder calculus
Data Reviewed
-
EKG: Tracing Personally Visualized and interpreted
Labs: Labs Reviewed by me
Old Records: Requested
--- NOTE | 2024-11-22 07:48 | PHA.VAN.IN ---
Addendum entered and electronically signed by Marixa William [facility] 11/22/24 14:27:
Retime levels
Peak level is ordered to be drawn (date/time): 11/23 @1000
Trough level is ordered to be drawn (date/time): 11/23 @1330
Original Note:
Assessment
- Assessment
Renal Function: Appears similar to baseline
Maximum Temperature: 101.7 F
Concomitant Antimicrobials: PIPERACILLIN/TAZOBACTAM
AUC Dosing Plan
- Dosing Variables
Dosing Weight (kg): 112
Dosing CrCl (ml/min): 125
Vd coefficient (L/kg): 0.7
- Empiric Dosing
Initial / Loading Dose: VANCO 2000MG
Maintenance Regimen: VANCO 1250MG Q8H
Estimated AUC (mcg*h/mL): 478
Estimated Peak (mcg*h/mL): 27.5
Estimated Trough (mcg/ml): 13.6
Estimated Half Life (H): 6.4
- Monitoring
Peak level is ordered to be drawn (date/time): 11/23 @0200
Trough level is ordered to be drawn (date/time): 11/23 @0530
Pharmacokinetics Vancomycin I
- -
Patient Age: 54
Patient Sex: Male
Vancomycin Day #: 1
Indication: Other
Requesting Provider: DR. CORTES
Height / Weight:
Height 6 ft
Actual Weight 112.689 kg
Pertinent Past Medical History: BMI 33
- Vital Signs / Lab Results
Temp Pulse Resp BP Pulse Ox
97.7 F 91 16 125/77 96
11/22/24 03:00 11/22/24 03:00 11/22/24 03:00 11/22/24 03:00 11/22/24 03:00
Lab Results - Hematology
11/21/24
13:57
WBC 4.2 L
Lab Results - Chemistry
11/21/24
13:57
BUN 8 L
Creatinine 0.6 L
Albumin 4.1
11/21/24 11/21/24
13:57 17:45
Lactic Acid 1.3 Cancelled
Lab Results - Urine
11/21/24
15:25
Urine Nitrite (Reflex) Negative
Leukocyte Esterase Rfl Negative
Microbiology Results
11/21/24 13:58 Blood Culture - Preliminary
Blood/Venous Positive culture in progress
Gram Stain - Preliminary
11/21/24 13:57 Influenza Types A & B (KRYSTEN) - Final
Nasal Swab Negative for Influenza A & B, NAAT
Negative results must be combined with clinical observations
and patient history.
Nucleic Acid Amplification test (NAAT)performed on the
[employer] platform.
[2024-11-22] MEDS: ZOSYN 50 IV (08:13)
[2024-11-22] MEDS: LOW STRENGTH ASPIRIN 81 MG PO (08:13)
[2024-11-22] MEDS: CYMBALTA DELAYED RELEASE 60 MG PO ×2 (08:13→19:56)
[2024-11-22] MEDS: CARDIZEM CD 120 MG PO (08:13)
[2024-11-22 08:15] LABS: Hematocrit 37.3 % (39.0-52.0); Hemoglobin 13.1 g/dL (13.0-18.0); Mean Corp Hgb Conc. 35.1 g/dL (33.0-37.0); Mean Corpuscular Volume 82.0 fL (80.0-94.0); Nucleated Red Blood Cells % 0 % (-); Platelet Count 168 10^3/uL (130-400); Red Cell Dist. Width 12.9 % (11.5-14.5)
[2024-11-22 08:15] LABS: Glucose - Point of Care 142 mg/dl (70-99)
[2024-11-22 08:41] LABS: ALT (SGPT) 70 U/L (0-50); AST (SGOT) 66 U/L (17-59); Albumin 3.5 g/dl (3.5-5.0); Alkaline Phosphatase 56 U/L (38-126); Blood Urea Nitrogen 5 mg/dl (9-20); Calcium 8.1 mg/dl (8.4-10.2); Carbon Dioxide 25 mmol/L (22-30); Chloride 105 mmol/L (98-107); Estimated Creatinine Clearance > 125 ml/min; Glucose 116 mg/dl (70-99); Potassium 3.6 mmol/L (3.5-5.1); Sodium 135 mmol/L (135-145); Total Protein 6.0 g/dl (6.3-8.2); eGFR > 60.00
[2024-11-22 09:36] LABS: Troponin I 0.015 ng/ml
--- NOTE | 2024-11-22 09:36 | CON.ID ---
Addendum entered and electronically signed by Joseph Parker DO 11/22/24 12:20:
I personally performed a history and physical exam of the patient and discussed management with the resident. I reviewed the resident's note and agree with the documented findings and plan of care HPI/CC.
Recommendations:
D/C further zosyn
Continue vanco while cultures pending. Follow levels to prevent nephrotoxicity.
Follow WBC and temps.
Original Note:
Consultation
-
Date/Time Consultation Requested: 11/21/2024 16:58
Date/Time Consultation Performed: 11/22/2024 08:50
Requesting Provider: Eladia Herrera
Performing Provider: Dr. Joseph Parker, Dr. Andrea Mercado
Reason for Consultation: Febrile Illness of unclear etiology
Chief Complaint / Past History
Chief Complaint
Febrile illness of unclear etiology
History of Present Illness
54-year-old male with a significant past medical history of CAD/cardiac stents, hypertension, hyperlipidemia, diabetes type 2, anxiety, ADHD, autism spectrum disorder, chronic abdominal pain presented with recent fevers, chills at home alongside of
nasal congestion and sore throat that began around 11/13/2024. He says that his started noticing the symptoms around that time as well and she presented with chills, and fever to the last around 4 days. He used a nasal spray like his but
he did not have any improvement. He continued to have chills and shakes that woke him up at night in marked sweat. On Tuesday he came to the ED for further workup however he says that he was sent home as he was thought to have a viral illness at the
time. He underwent ultrasound at that time which showed Cholelithiasis without cholecystitis and he did not have any abdominal pain at that time. He continued to have worsening symptoms and came back to the hospital for further evaluation.
His major concern is that he has had this frontal headache alongside chills. He also has had this chest pain for which he follows with Dr. Juarez. He spoke with Dr. Juarez who told him to go back to the ED for further workup of his symptoms. In the
ED yesterday, he was found to have a temperature of 101.7F but was COVID and flu negative. Blood cultures were drawn, patient was given IV fluids and underwent CT scan which was negative for any acute findings. Patient was started on Vancomycin
and Zosyn and was admitted to the hospital for further management and supportive care.
Past History
Additional Past Medical History:
CAD status post stenting
Hypertension
Hyperlipidemia
Type 2 diabetes
Anxiety
ADHD
Autism spectrum disorder
Obesity
Hypomagnesemia
Chronic abdominal pain
Additional Past Surgical History:
Right femur repair
Cardiac stents x 2 or 3
Allergy History:
No Known Allergies Allergy (Verified 11/18/24 18:22)
Medications Reviewed: Yes
Current Antibiotics:
Zosyn 3.375gm q6
Vancomycin 1250mg TID
Social History
Tobacco: Non-Smoker
Alcohol: None
Drug: None
Personal:
Living: With Family
Employment: Employed ([employer] business)
Family History
Family History: Not Pertinent
Review of Systems
Review of Systems
General: Fever and Chills
HEENT: Headache; Negative Stiff Neck
Cardiovascular: Chest Pain; Negative Dyspnea
Respiratory: Negative Cough
Genital / Urological: Negative Dysuria
Neurological: Headache; Negative Dizziness or Fainting
All systems: All other systems were reviewed and were negative
Vital Signs
Temp Pulse Resp BP Pulse Ox
98.1 F 78 16 120/76 96
11/22/24 07:30 11/22/24 07:30 11/22/24 07:30 11/22/24 08:13 11/22/24 07:30
Physical Exam
Physical Exam
Constitutional: No Acute Distress, Well Developed, Comfortable and Non-toxic
Head: Normocephalic
Eyes: Pupils Equal and Sclera Anicteric
Pharynx: Negative Erythema
Cardiovascular: Regular Rate and S1/S2; Negative Murmur
Pulmonary: Clear and Non Labored
Gastrointestinal: Soft, Non Tender and Non Distended
Extremities: Negative Edema, Clubbing or Cyanosis
Skin: Warm and Dry
Neurological: Awake, Alert, Oriented, AO x 3 and No Motor Deficits
Psychological: Calm
.
Lab / Diagnostic Study Results
11/22/24 07:30
11/22/24 07:30
Abs Immat Gran (auto) 0.0 10^3/uL (0-0.05) 11/22/24 07:30
Absolute Neuts (auto) 2.1 10^3/uL (1.4-6.5) 11/22/24 07:30
Absolute Lymphs (auto) 1.2 10^3/uL (1.2-3.4) 11/22/24 07:30
Absolute Monos (auto) 0.6 10^3/uL (0.1-0.6) 11/22/24 07:30
Absolute Basos (auto) 0.0 10^3/uL (0-0.2) 11/22/24 07:30
Immature Gran % 0.3 % (0-0.5) 11/22/24 07:30
Neutrophils % 53.2 % (42.2-75.2) 11/22/24 07:30
Lymphocytes % 30.5 % (20.5-51.1) 11/22/24 07:30
Monocytes % 14.2 % (1.7-9.3) H 11/22/24 07:30
Eosinophils % 1.0 % (0-6) 11/22/24 07:30
Basophils % 0.8 % (0-2) 11/22/24 07:30
PT 14.4 Sec (11.4-14.6) 11/21/24 13:58
INR 1.07 11/21/24 13:58
Lactic Acid Cancelled 11/21/24 17:45
Microbiology Results
Micro:
11/21/24 13:58 Blood Culture - Preliminary
Blood/Venous Staphylococcus species
Gram Stain - Preliminary
11/21/24 16:49 Blood Culture - Pending
Blood/Venous
11/21/24 13:57 Influenza Types A & B (KRYSTEN) - Final
Nasal Swab Negative for Influenza A & B, NAAT
Negative results must be combined with clinical observations
and patient history.
Nucleic Acid Amplification test (NAAT)performed on the
[employer] platform.
Imaging:
11/21/2024 CT Chest/abd/pel W Iv Cont: No evidence of pneumonia. No aortic aneurysm. No central pulmonary embolism. Coronary calcified plaque present. No acute inflammatory process within the abdomen or pelvis. Mild diverticulosis. No evidence of
acute diverticulitis. No bowel obstruction. The appendix is normal. No obstructive uropathy. Mild hepatosplenomegaly. Fatty infiltration of liver. Tiny gallbladder calculus. No CT evidence of acute cholecystitis. No apparent bile duct dilatation.
Nonspecific mild upper abdominal retroperitoneal adenopathy.
Assessment / Plan
54-year-old male with significant past medical history of CAD, hypertension, hyperlipidemia, autism spectrum disorder, ADHD presents with fever, chills, nasal congestion that has been going on for a week and a half now.
# Fever from unclear etiology
# CAD/cardiac stents with recent chest tightness
# Hyperlipidemia
# Hypertension
# Anxiety
# ADHD
# Autism Spectrum Disorder (dx age 32)
# Chronic Abdominal Pain
Plan
- Had one temperature of 101.7 F (Oral) in the ED but since then has not had any recorded fevers
- Patient was started on empiric antibiotic therapy with Zosyn and vancomycin
- Continues to have chills but no specific source of infection seen. No urinary symptoms, no pneumonia seen on CT, no wounds, no abdominal pain at this time.
- Blood cultures show preliminary growth with Staphylococcus species, may be contaminant
- Follow second blood culture
- Continue empiric antibiotic treatment while following blood cultures
- Fever and chills may be from viral illness
- Follow WBC, temperature curve
--- NOTE | 2024-11-22 09:57 | W.PN.HOSP.TC ---
Today's Communication/Plan
-
see A/P
Assessment / Plan
Assessment / Plan
HPI: 54-year-old male with PMH CAD s/p cardiac stents, HTN, NIDDM, anxiety, ADHD; p/w fever, chills/night sweats, and chest pain/discomfort, ongoing for several days.
He stated that his and son recently experienced nasal congestion which were attributed to allergy; their symptoms resolved after taking allergy medications.
A/P:
# fever, unclear etiology
COVID/influenza negative, Monospot test negative
CT CAP unrevealing, no PE, no pneumonia, no acute inflammatory process within the AP
CT head from 11/18 was unrevealing
Follow Blood cultures x 2
Cover with empiric Abx vancomycin and Zosyn
ID CS
# Chest discomfort , resolved
# H/o ACS s/p several cardiac stents
# Mild troponin elevation suspect non-ischemic myocardial injury
Pt states that he has a nuclear stress test scheduled outpt
Check echo
Card on bord
# History of anxiety/autism
s/p Ativan in ER
Continue Cymbalta,
Cont lorazepam adjusted to 1 mg Q4H PRN
# Acute transaminitis likely reactive
Monitor LFT
# Hypokalemia
replete
# HTN
Continue diltiazem XR 120 mg daily
Holding DIRECTOR OF MATERIALS MANAGEMENT Aldactone-HCTZ
# NIDDM
Cover with Accu-Cheks with SSI,
check HgbA1c
Hold Jardiance / DIRECTOR OF MATERIALS MANAGEMENT Mounjaro currently
# HLD
intolerant of statins, was on Praluent in outpt setting, recently switched to Repatha, hasn't started yet.
# Hypothyroidism
Continue Synthroid 125 mcg p.o. daily
# Obesity with BMI 36.5
# chronic abdominal pain thought to be from GLP-1 medications over the past 10 to 15 years.
He was seen [facility] 11/18/2024 and had an ultrasound showing cholelithiasis without cholecystitis.
# Seasonal allergies
DIRECTOR OF MATERIALS MANAGEMENT cetirizine 10 mg daily PRN and nasal spray PRN
DVT prophylaxis: Lovenox SQ
Full code
DW RN
Anticipated Discharge: 24 - 48 hours
Subjective/Interval History
-
Date of Service: November 22, 2024
Objective Data
-
Labs:
Laboratory Results
11/22/24
07:30
WBC 3.9 L
Hgb 13.1
Hct 37.3 L
Plt Count 168
Sodium 135
Potassium 3.6
Chloride 105
Carbon Dioxide 25
BUN 5 L
Creatinine 0.5 L
Glucose 116 H
Calcium 8.1 L
Total Bilirubin 1.7 H
AST 66 H
ALT 70 H
Alkaline Phosphatase 56
Vital Signs:
Vital Signs
Temp Pulse Resp BP Pulse Ox
36.7 C 78 16 120/76 96
11/22/24 07:30 11/22/24 07:30 11/22/24 07:30 11/22/24 08:13 11/22/24 07:30
Review of Systems
-
History Source: Patient
All other systems: Reviewed and negative
Cardiac: Denies Chest Pain
Physical Exam
-
General: Well Developed, Well Nourished, No Apparent Distress, Comfortable, Conversant and Obese; Negative Respiratory Distress
HEENT: Normocephalic, Atraumatic, Nose Appears Normal and Ears Appear Normal; Negative Oxygen
Respiratory: Clear to Auscultation and Non Labored Respirations; Negative Accessory Resp Muscle Use
Cardiac: Regular Rhythm and S1/S2
GI: Soft, Nontender, Nondistended and Normal Bowel Sounds
Skin: Warm and Dry
Neuro: Awake, Alert, Oriented and AO x 3
Psych: Calm and Intact Judgement/Insight
Data Reviewed
-
CT Scan: Report Reviewed by me and Discussed with Patient
Labs: Labs Reviewed by me
[2024-11-22] MEDS: VANCOCIN 275 MG IV ×3 (10:16→21:46)
[2024-11-22 12:07] LABS: Glucose - Point of Care 138 mg/dl (70-99)
[2024-11-22] MEDS: ROXICODONE 5 MG PO (13:20)
[2024-11-22] MEDS: NSS IV (14:13)
[2024-11-22] MEDS: LOVENOX 40 MG SC (17:58)
[2024-11-22 22:59] LABS: Glucose - Point of Care 196 mg/dl (70-99)
[2024-11-23] MEDS: TYLENOL 650 MG PO ×4 (03:32→19:29)
[2024-11-23 03:47] VITALS: BP 129/72
[2024-11-23 05:35] VITALS: BMI 32.9
[2024-11-23] MEDS: SYNTHROID 125 MCG PO (06:10)
[2024-11-23] MEDS: VANCOCIN 275 MG IV ×2 (06:10→14:45)
[2024-11-23 07:00] VITALS: BP 129/73
[2024-11-23] MEDS: CARDIZEM CD 120 MG PO (08:19)
[2024-11-23] MEDS: LOW STRENGTH ASPIRIN 81 MG PO (08:19)
[2024-11-23] MEDS: CYMBALTA DELAYED RELEASE 60 MG PO ×2 (08:19→19:29)
[2024-11-23 08:24] LABS: Glucose - Point of Care 113 mg/dl (70-99)
[2024-11-23 08:52] LABS: Hematocrit 36.7 % (39.0-52.0); Hemoglobin 13.0 g/dL (13.0-18.0); Mean Corp Hgb Conc. 35.4 g/dL (33.0-37.0); Mean Corpuscular Volume 80.8 fL (80.0-94.0); Platelet Count 175 10^3/uL (130-400); Red Cell Dist. Width 12.8 % (11.5-14.5)
[2024-11-23 09:37] LABS: Blood Urea Nitrogen 6 mg/dl (9-20); Calcium 8.6 mg/dl (8.4-10.2); Carbon Dioxide 27 mmol/L (22-30); Chloride 104 mmol/L (98-107); Estimated Creatinine Clearance > 125 ml/min; Glucose 114 mg/dl (70-99); Magnesium 1.9 mg/dl (1.6-2.3); Potassium 3.5 mmol/L (3.5-5.1); Sodium 137 mmol/L (135-145); eGFR > 60.00
--- NOTE | 2024-11-23 10:00 | W.PN.HOSP.TC ---
Today's Communication/Plan
-
see A/P
Assessment / Plan
Assessment / Plan
HPI: 54-year-old male with PMH CAD s/p cardiac stents, HTN, NIDDM, anxiety, ADHD; p/w fever, chills/night sweats, and chest pain/discomfort, ongoing for several days.
He stated that his and son recently experienced nasal congestion which were attributed to allergy; their symptoms resolved after taking allergy medications.
A/P:
# fever, unclear etiology,
COVID/influenza negative, Monospot test negative
CT CAP unrevealing, no PE, no pneumonia, no acute inflammatory process within the AP
CT head from 11/18 was unrevealing
One set blood culture from admission showed CONS (likely contaminant), other set negative, follow repeat blood culture
Defer Abx vancomycin to ID
Off Zosyn
ID on board
# Chest discomfort , resolved
# H/o ACS s/p several cardiac stents
# Mild troponin elevation suspect non-ischemic myocardial injury
Pt states that he has a nuclear stress test scheduled outpt
echo unrevealing:
1. Small left ventricle with mild left ventricular hypertrophy and preserved systolic function, ejection fraction 55-60%.
2. Mild mitral leaflet thickening with trace mitral regurgitation and normal left atrium.
3. Normal aortic valve.
4. Normal right heart, pulmonary artery systolic pressure 25 mmHg.
5. The aorta at the sinuses of Valsalva is 4.0 cm.
6. There are no prior studies available for comparison.
Card on bord
# History of anxiety/autism
s/p Ativan in ER
Continue Cymbalta,
Cont lorazepam adjusted to 1 mg Q4H PRN
# Acute transaminitis likely reactive
Monitor LFT
# Hypokalemia
replete IV (pt declined PO supplement)
# HTN
Continue diltiazem XR 120 mg daily
Holding TRAINING AND DEVELOPMENT HEAD Aldactone-HCTZ
# NIDDM
Cover with Accu-Cheks with SSI,
check HgbA1c
Hold Jardiance / TRAINING AND DEVELOPMENT HEAD Sherrie currently
# HLD
intolerant of statins, was on Praluent in outpt setting, recently switched to Repatha, hasn't started yet.
# Hypothyroidism
Continue Synthroid 125 mcg p.o. daily
# Obesity with BMI 36.5
# chronic abdominal pain thought to be from GLP-1 medications over the past 10 to 15 years.
He was seen in [facility] 11/18/2024 and had an ultrasound showing cholelithiasis without cholecystitis.
# Seasonal allergies
TRAINING AND DEVELOPMENT HEAD cetirizine 10 mg daily PRN and nasal spray PRN
DVT prophylaxis: Lovenox SQ
Full code
DW on the phone
Anticipated Discharge: Within 24 hours
Subjective/Interval History
-
Date of Service: November 23, 2024
Objective Data
-
Labs:
Laboratory Results
11/23/24
07:45
WBC 4.1 L
Hgb 13.0
Hct 36.7 L
Plt Count 175
Sodium 137
Potassium 3.5
Chloride 104
Carbon Dioxide 27
BUN 6 L
Creatinine 0.5 L
Glucose 114 H
Calcium 8.6
Vital Signs:
Vital Signs
Temp Pulse Resp BP Pulse Ox
36.6 C 64 15 129/73 98
11/23/24 07:00 11/23/24 07:00 11/23/24 07:00 11/23/24 07:00 11/23/24 07:00
I&O
11/22/24 11/23/24 11/24/24
06:59 06:59 06:59
Intake Total 2509 / 2509
Balance 2509 / 2509
Review of Systems
-
History Source: Patient
All other systems: Reviewed and negative
Cardiac: Denies Chest Pain
Physical Exam
-
General: Well Developed, Well Nourished, No Apparent Distress, Comfortable, Conversant and Obese; Negative Respiratory Distress
HEENT: Normocephalic, Atraumatic, Nose Appears Normal and Ears Appear Normal; Negative Oxygen
Respiratory: Clear to Auscultation and Non Labored Respirations; Negative Accessory Resp Muscle Use
Cardiac: Regular Rhythm and S1/S2
GI: Soft, Nontender, Nondistended and Normal Bowel Sounds
Skin: Warm and Dry
Neuro: Awake, Alert, Oriented, AO x 3 and Nonfocal/Grossly Intact
Psych: Calm and Intact Judgement/Insight
Data Reviewed
-
CT Scan: Report Reviewed by me and Discussed with Patient
Labs: Labs Reviewed by me
[2024-11-23] MEDS: KCL 270 MEQ IV (10:38)
[2024-11-23 10:44] LABS: ALT (SGPT) 81 U/L (0-50); AST (SGOT) 72 U/L (17-59); Albumin 3.5 g/dl (3.5-5.0); Alkaline Phosphatase 60 U/L (38-126); Total Protein 6.1 g/dl (6.3-8.2)
[2024-11-23 11:00] VITALS: BP 119/69
[2024-11-23 11:37] LABS: Glucose - Point of Care 128 mg/dl (70-99)
[2024-11-23 11:58] LABS: Glycohemoglobin (HgbA1c) 6.5 % (4.0-5.6)
[2024-11-23] MEDS: ATIVAN 1 MG PO ×2 (12:33→22:09)
--- NOTE | 2024-11-23 13:56 | W.PN.CARDCBS ---
Addendum entered and electronically signed by Wes Ferrara MD 11/23/24 17:38:
I saw and examined the patient.
The Lieutenant/Deputy's note was reviewed and I agree with the note.
Comment: Briefly, 54-year-old man past medical history of coronary artery disease presenting with chest discomfort found to be febrile and is currently being worked up for possible infection.
At the time my evaluation patient tells me he is chest pain-free
Troponin has been within normal limits x 3
ECGs are not acutely ischemic
Discussed with patient, he has a stress test scheduled through his primary fisheries management biologist within the next 2 weeks
Recommended he complete the stress test as planned and follow-up with his primary fisheries management biologist for additional evaluation and management
Stable cardiac status, we will sign off, please recall as needed
Original Note:
Today's Communication / Plan
-
plan for outpt ischemic w/u as previously scheduled
Impression / Plan
-
PCP:
Primary fisheries management biologist: Jacqueline Reilly Nicolaus [phone]
Impression:
chest pain
Mild troponin elevation, thought to be due to nonischemic myocardial injury in setting of fever
CAD -has SCIENCE TEACHER to RCA 05/2016, nonobstructive dz in [facility]
pt reports having coronary stent in 2017
HTN
hyperlipidemia
abdominal pain
fever
DM type 2
autism spectrum d/o
anxiety
ADHD
obesity
chonic abdominal pain
hypomagnesemia
statin allergy
Previous CV testing:
CT angiography of coronary arteries: 05/05/2016: LM normal. LAD: prox 3rd LAD with large calcified linear plaque
Plan:
54-year-old male with h/o CAD, s/p cardiac stenting ~2017, hypertension, hyperlipidemia, type 2 diabetes, anxiety, ADHD, autism spectrum disorder, class II obesity, hypomagnesemia and chronic abdominal pain presents with fevers, abdominal pain and
chest tightness. Tightness precipated by stressful situations and has worsened in recent months. Troponin 0.024, 0.023, 0.015
-echo 11/22: Small LV with mild LVH, LVEF 55 to 60%, normal RV, no significant valvular heart disease
-obtain records Dr Juarez
-telem NSR/ST 70s-90s
-currently scheduled for nuclear stress test next week through primary fisheries management biologist
-cont ASA
-home antihypertensives: Diltiazem and spironolactone/HCTZ (currently on hold)
-intolerant of statins, was on Praluent in outpt setting, recently switched to Repatha, hasn't started yet.
-f/u outpt fisheries management biologist
He has chronic abdominal pain thought to be from GLP-1 medications over the past 10 to 15 years. He was seen in [facility] ED 11/18/2024 and had an ultrasound showing cholelithiasis without cholecystitis.
-fever/abd pain w/u per primary team
- he was COVID/influenza negative
- Blood cultures checked
-CT abd/pelvis No pneumonia, no PE, no aortic aneurysm, positive coronary calcified plaque, mild diverticulosis mild hepatosplenomegaly, fatty infiltration of liver, tiny gallbladder calculus
Progress Note - Pearl Stringer
Subjective
Date of Service: November 23, 2024
feels better
no CP
no abd pain
Objective
Labs:
11/23/24 07:45
11/23/24 07:45
Labs
Hgb 13.0 g/dL (13.0-18.0) 11/23/24 07:45
Hct 36.7 % (39.0-52.0) L 11/23/24 07:45
Plt Count 175 10^3/uL (130-400) 11/23/24 07:45
PT 14.4 Sec (11.4-14.6) 11/21/24 13:58
INR 1.07 11/21/24 13:58
APTT 32.6 Sec (23.4-35.0) 11/21/24 13:58
Sodium 137 mmol/L (135-145) 11/23/24 07:45
Potassium 3.5 mmol/L (3.5-5.1) 11/23/24 07:45
BUN 6 mg/dl (9-20) L 11/23/24 07:45
Creatinine 0.5 mg/dL (0.7-1.3) L 11/23/24 07:45
Glucose 114 mg/dl (70-99) H 11/23/24 07:45
Troponins
11/21/24 11/21/24 11/22/24
13:57 16:49 08:35
Troponin I 0.024 0.023 0.015
Vital Signs and I&O:
Vital Signs
Temp Pulse Resp BP Pulse Ox
98 F 64 15 129/73 98
11/23/24 07:00 11/23/24 07:00 11/23/24 07:00 11/23/24 07:00 11/23/24 07:00
Vital Signs
Temp Pulse Resp BP Pulse Ox
98 F 64 15 129/73 98
11/23/24 07:00 11/23/24 07:00 11/23/24 07:00 11/23/24 07:00 11/23/24 07:00
Intake & Output
11/21/24 11/22/24 11/23/24 11/24/24
06:59 06:59 06:59 06:59
Intake Total 2510 / 2510
Balance 2510 / 2510
Physical Exam
Physical Exam
GEN: No distress, awake, Ox3
HEENT: supple, anicteric, mmm
LUNGS: CTA, no wheezes/rales
CV: Reg, S1/S2, no murmur
ABD: soft, BS+, NT/ND
EXT: No edema
NEURO: Gross non-focal
SKIN: No rash
[2024-11-23 15:00] VITALS: BP 127/80
--- NOTE | 2024-11-23 15:18 | W.PN.ID1 ---
Date of Service
Date of Service: November 23, 2024
Today's Communication
D/C antibiotics and observe
Assessment / Plan
54-year-old male with significant past medical history of CAD, hypertension, hyperlipidemia, autism spectrum disorder, ADHD presents with fever, chills, nasal congestion that has been going on for a week and a half now.
# Fever from unclear etiology
# CAD/cardiac stents with recent chest tightness
# Hyperlipidemia
# Hypertension
# Anxiety
# ADHD
# Autism Spectrum Disorder (dx age 32)
# Chronic Abdominal Pain
Plan
- Had one temperature of 101.7 F (Oral) in the ED but since then has not had any recorded fevers
- Continues to have chills but no specific source of infection seen. No urinary symptoms, no pneumonia seen on CT, no wounds, no abdominal pain at this time.
- Blood culture results consistent with contamination.
- Discontinue further antibiotics and observe.
����������������������������������������������������������
Chief Complaint
-: Fever
Subjective / Review of Systems
Patient notes ongoing sweats. Appears to be afebrile for the past 24 hours.
Vital Signs / Physical Exam
Vital Signs
Vital Signs
Temp Pulse Resp BP Pulse Ox
99 F 74 18 119/69 99
11/23/24 11:00 11/23/24 11:00 11/23/24 11:00 11/23/24 11:00 11/23/24 11:00
Physical Exam
Constitutional: No Acute Distress, Comfortable and Non-toxic
Eyes: Sclera Anicteric
Pulmonary: Non Labored
Gastrointestinal: Non Distended
Skin: Negative Rash or Jaundice
Neurological: Awake, Alert and Oriented
Psychological: Calm
Objective Data
Lab Data
Lab Results
11/23/24 07:45
11/23/24 07:45
PT 14.4 Sec (11.4-14.6) 11/21/24 13:58
INR 1.07 11/21/24 13:58
APTT 32.6 Sec (23.4-35.0) 11/21/24 13:58
Estimated Creat Clear > 125 ml/min 11/23/24 07:45
Lactic Acid Cancelled 11/21/24 17:45
Total Bilirubin 1.2 mg/dl (0.2-1.3) 11/23/24 07:45
AST 72 U/L (17-59) H 11/23/24 07:45
ALT 81 U/L (0-50) H 11/23/24 07:45
Alkaline Phosphatase 60 U/L (38-126) 11/23/24 07:45
Most recent labs reviewed.
Micro Results:
11/22/24 14:24 Blood Culture - Preliminary
Blood/Venous No Growth in 24 hours- Final report to follow
11/21/24 13:58 Blood Culture - Preliminary
Blood/Venous Coagulase neg. staphylococcus
Additional testing on request
Gram Stain - Final
11/21/24 16:49 Blood Culture - Preliminary
Blood/Venous No Growth in 24 hours- Final report to follow
11/21/24 13:57 Influenza Types A & B (KRYSTEN) - Final
Nasal Swab Negative for Influenza A & B, NAAT
Negative results must be combined with clinical observations
and patient history.
Nucleic Acid Amplification test (NAAT)performed on the
[employer] platform.
Imaging:
11/21/2024 CT Chest/abd/pel W Iv Cont: No evidence of pneumonia. No aortic aneurysm. No central pulmonary embolism. Coronary calcified plaque present. No acute inflammatory process within the abdomen or pelvis. Mild diverticulosis. No evidence of
acute diverticulitis. No bowel obstruction. The appendix is normal. No obstructive uropathy. Mild hepatosplenomegaly. Fatty infiltration of liver. Tiny gallbladder calculus. No CT evidence of acute cholecystitis. No apparent bile duct dilatation.
Nonspecific mild upper abdominal retroperitoneal adenopathy.
--- NOTE | 2024-11-23 15:34 | CM ---
Patient seen bedside, initial assessment completed. Admitted for frontal headache, fever, decreased oral intake, chronic abdominal pain. Observe off abx per ID
Patient resides w/ spouse and their 2 sons who has special needs. Patient and family reside in a 2S, 3 steps to enter from the outside. Patient is independent in all areas, no DME. No therapy hx. Patient currently employed at [employer].
Address, point of contact and insurance verified
PCP: Andrea Flores
[facility]
Plan: Home, no needs
[2024-11-23 16:30] LABS: Glucose - Point of Care 148 mg/dl (70-99)
[2024-11-23] MEDS: LOVENOX 40 MG SC (17:09)
[2024-11-23 19:00] VITALS: BP 123/76
[2024-11-23 21:29] LABS: Glucose - Point of Care 168 mg/dl (70-99)
[2024-11-23 23:00] VITALS: BP 133/78
[2024-11-24 03:00] VITALS: BP 128/73
[2024-11-24 05:39] VITALS: BMI 32.6
[2024-11-24] MEDS: SYNTHROID 125 MCG PO (06:26)
[2024-11-24 07:34] LABS: Hematocrit 38.2 % (39.0-52.0); Hemoglobin 13.1 g/dL (13.0-18.0); Mean Corp Hgb Conc. 34.3 g/dL (33.0-37.0); Mean Corpuscular Volume 80.9 fL (80.0-94.0); Platelet Count 207 10^3/uL (130-400); Red Cell Dist. Width 13.0 % (11.5-14.5)
[2024-11-24] MEDS: LOW STRENGTH ASPIRIN 81 MG PO (07:51)
[2024-11-24] MEDS: CYMBALTA DELAYED RELEASE 60 MG PO (07:51)
[2024-11-24] MEDS: CARDIZEM CD 120 MG PO (07:51)
[2024-11-24 07:59] LABS: ALT (SGPT) 135 U/L (0-50); AST (SGOT) 131 U/L (17-59); Albumin 3.7 g/dl (3.5-5.0); Alkaline Phosphatase 74 U/L (38-126); Blood Urea Nitrogen 7 mg/dl (9-20); Calcium 8.6 mg/dl (8.4-10.2); Carbon Dioxide 31 mmol/L (22-30); Chloride 102 mmol/L (98-107); Estimated Creatinine Clearance > 125 ml/min; Glucose 114 mg/dl (70-99); Potassium 3.8 mmol/L (3.5-5.1); Sodium 137 mmol/L (135-145); Total Protein 6.2 g/dl (6.3-8.2); eGFR > 60.00
[2024-11-24 08:14] LABS: Glucose - Point of Care 140 mg/dl (70-99)
[2024-11-24] MEDS: ATIVAN 1 MG PO (09:33)
--- NOTE | 2024-11-24 11:09 | W.DCSUMMARY ---
Addendum entered and electronically signed by Abelino Sanchez MD 11/24/24 11:36:
Day of discharge physical exam:
General: Well Developed, Well Nourished, No Apparent Distress, Comfortable, Conversant and Obese; Negative Respiratory Distress
HEENT: Normocephalic, Atraumatic, Nose Appears Normal and Ears Appear Normal; Negative Oxygen
Respiratory: Clear to Auscultation and Non Labored Respirations; Negative Accessory Resp Muscle Use
Cardiac: Regular Rhythm and S1/S2
GI: Soft, Nontender, Nondistended and Normal Bowel Sounds
Skin: Warm and Dry
Neuro: Awake, Alert, Oriented, AO x 3 and Nonfocal/Grossly Intact
Psych: Calm and Intact Judgement/Insight
Original Note:
Discharge Summary
Discharge Data
Date of Admission: 11/22/24
Date of Discharge: 11/24/24
-
Pending Results: Yes
Additional Pending Results:
Blood cultures
Hospital Course
Initial Presentation
54-year-old man presented with fever, chills/night sweats, and chest pain/discomfort, ongoing for several days. He stated that his and son recently experienced nasal congestion which were attributed to allergy; their symptoms resolved after
taking allergy medications.
Diagnosis present prior to admission:
CAD s/p cardiac stents,
essential HTN,
NIDDM,
anxiety,
ADHD
autism spectrum
Obesity
Hypomagnesemia
Chronic abdominal pain
Right femur repair
Cardiac stents x 2 or 3
Procedures:
None
Imaging and other data:
CT:
No evidence of pneumonia.
No aortic aneurysm.
No central pulmonary embolism.
Coronary calcified plaque present.
No acute inflammatory process within the abdomen or pelvis. Mild diverticulosis.
No evidence of acute diverticulitis.
No bowel obstruction.
The appendix is normal.
No obstructive uropathy.
Mild hepatosplenomegaly.
Fatty infiltration of liver.
Tiny gallbladder calculus.
No CT evidence of acute cholecystitis.
No apparent bile duct dilatation.
Nonspecific mild upper abdominal retroperitoneal adenopathy. [This needs follow up]
Echo:
1. Small left ventricle with mild left ventricular hypertrophy and preserved systolic function, ejection fraction 55-60%.
2. Mild mitral leaflet thickening with trace mitral regurgitation and normal left atrium.
3. Normal aortic valve.
4. Normal right heart, pulmonary artery systolic pressure 25 mmHg.
5. The aorta at the sinuses of Valsalva is 4.0 cm.
6. There are no prior studies available for comparison.
ECG:
SINUS TACHYCARDIA
INFERIOR INFARCT , AGE UNDETERMINED
ABNORMAL ECG
WHEN COMPARED WITH ECG OF 18-Nov-2024 18:34,
INFERIOR INFARCT IS NOW PRESENT
T WAVE INVERSION NOW EVIDENT IN INFERIOR LEADS
Hospital course by Problem with Plan:
1. fever, unclear etiology - resolved
COVID/influenza negative, Monospot test negative
CT CAP unrevealing, no PE, no pneumonia, no acute inflammatory process within the AP
CT head from 11/18 was unrevealing
One set blood culture from admission showed CONS (likely contaminant), other set negative so far
follow repeat blood culture
ID consult stated:
'- Had one temperature of 101.7 F (Oral) in the ED but since then has not had any recorded fevers
- Continues to have chills but no specific source of infection seen.
- No urinary symptoms, no pneumonia seen on CT, no wounds, no abdominal pain at this time.
- Blood culture results consistent with contamination.
- Discontinue further antibiotics and observe.'
2. Chest discomfort , resolved, and patient requests to go home
H/o ACS s/p several cardiac stents
Mild troponin elevation suspect non-ischemic myocardial injury
0.024 --> 0.023 --> 0.015
Pt states that he has a nuclear stress test scheduled as an outpt
echo was unrevealing (see above):
Cardiology consult stated:
'At the time my evaluation patient tells me he is chest pain-free
Troponin has been within normal limits x 3
ECGs are not acutely ischemic
Discussed with patient, he has a stress test scheduled through his primary electronics commodity manager within the next 2 weeks
Recommended he complete the stress test as planned and follow-up with his primary electronics commodity manager for additional evaluation and management.'
The patient agrees with this plan and stated he would like to go home today
He has capacity to make this choice
3. History of anxiety/autism - chronic
s/p Ativan given in ER
We Continued the Cymbalta,
We Continued lorazepam adjusted to 1 mg Q4H PRN
4. Acute transaminitis, likely reactive
Monitor LFT as outpatient
5. Hypokalemia - resolved, today 3.8
THis was repleted by IV (pt declined PO supplement)
6. Essential HTN - chronic
We Continued the diltiazem XR 120 mg daily
We placed Holding [employer] DRIVER Aldactone-HCTZ
Resume usual meds at discharge
7. NIDDM with reasonable inpatient control, today was 114
We Covered with Accu-Cheks with SSI,
We checked HgbA1c - 6.5, continue outpatient managament
We Held the Jardiance / SUB[employer] DRIVER Mounjaro
Resume usual meds at discharge
8. HLD - chromic
intolerant of statins, was on Praluent in outpt setting, recently switched to Repatha, hasn't started yet.
Outpatient follow up recommended
9. Hypothyroidism - chronic
We Continued Synthroid 125 mcg p.o. daily
10. Obesity with BMI 36.5 - chronic
Continue outpatient management
11. chronic abdominal pain thought to be from GLP-1 medications over the past 10 to 15 years.
He was seen in [facility] 11/18/2024 and had an ultrasound showing cholelithiasis without cholecystitis.
Continue outpatient management - see CT results above.
Adenopathy seen on CT
Outpatient follow up needed for the adenopathy
Discharge summary to be sent to PCP
12. Seasonal allergies - chronic
Continue SUBSTITUTE [employer] DRIVER cetirizine 10 mg daily PRN and nasal spray PRN
DVT prophylaxis while in hospital: Lovenox SQ
Full code while in hospital
Discharge Plan
-
Patient Disposition: Home (Routine Discharge)
Discharge Diagnosis/Procedures: Chest pain and fever
Diet: As tolerated
Activity: As tolerated
Driving Restrictions: As prior to admission
Bathing Restrictions: None
Others Tests: Final Blood cultures pending
CT showed abdominal adenopathy - this needs follow up by PCP
Referrals:
Andrea Flores MD [Family Provider]
Prescriptions:
Continued
spironolacton-hydrochlorothiaz 25-25 mg tablet
1 tab PO DAILY
levothyroxine [Synthroid] 125 mcg tablet
125 mcg PO DAILY
diltiazem HCl [DILT-XR] 120 mg capsule,ext.rel 24h degradable
120 mg PO DAILY
aspirin 81 mg Tablet,Chewable
81 mg PO DAILY
lorazepam 1 mg tablet
1 mg PO DAILYPRN PRN (Reason: anxiety)
duloxetine 60 mg capsule,delayed release(DR/EC)
60 mg PO BID
icosapent ethyl 1 gram capsule
1 g PO BID
Jardiance 25 mg tablet
25 mg PO DAILY
Mounjaro 7.5 mg/0.5 mL pen injector
7.5 mg SC FR
cetirizine 10 mg Tablet
10 mg PO DAILY PRN (Reason: ALLERGIES)
Theragen Tablet
1 tab PO DAILY
cyanocobalamin (vitamin B-12) [Vitamin B-12] 1,000 mcg/mL Solution
100 mcg IM QMONTH
fluticasone propionate 50 mcg/actuation [place],Suspension
1 spray INTRANASAL DAILY PRN (Reason: CONGESTION)
coenzyme Q10 [Co Q-10] 200 mg Capsule
200 mg PO DAILY
cholecalciferol (vitamin D3) [Vitamin D3] 25 mcg (1,000 unit) Tablet
25 mcg PO DAILY
Discharge Orders:
Discharge Patient (As Directed); Ordered 11/24/24
Ordered By: Abelino Sanchez
Discharge Date and Time
Print Language: MEXICAN
[2024-11-24 11:32] LABS: Glucose - Point of Care 121 mg/dl (70-99)
--- NOTE | 2024-11-24 11:38 | CM ---
Chart reviewed and patient is for discharge to home today.
Plan; Home no needs.
[2024-11-24 11:55] VITALS: BP 129/76
--- NOTE | 2024-11-24 14:38 | W.DCSUMMARY ---
Discharge Summary
Discharge Data
Date of Admission: 11/22/24
Date of Discharge: 11/24/24
Total time spent discharging patient (in min): 51
-
Pending Results: Yes
Additional Pending Results:
Blood cultures
Hospital Course
Hospital Course
Initial Presentation
54-year-old man presented with fever, chills/night sweats, and chest pain/discomfort, ongoing for several days. He stated that his and son recently experienced nasal congestion which were attributed to allergy; their symptoms resolved after
taking allergy medications.
Diagnosis present prior to admission:
CAD s/p cardiac stents,
essential HTN,
NIDDM,
anxiety,
ADHD
autism spectrum
Obesity
Hypomagnesemia
Chronic abdominal pain
Right femur repair
Cardiac stents x 2 or 3
Procedures:
None
Imaging and other data:
CT:
No evidence of pneumonia.
No aortic aneurysm.
No central pulmonary embolism.
Coronary calcified plaque present.
No acute inflammatory process within the abdomen or pelvis. Mild diverticulosis.
No evidence of acute diverticulitis.
No bowel obstruction.
The appendix is normal.
No obstructive uropathy.
Mild hepatosplenomegaly.
Fatty infiltration of liver.
Tiny gallbladder calculus.
No CT evidence of acute cholecystitis.
No apparent bile duct dilatation.
Nonspecific mild upper abdominal retroperitoneal adenopathy. [This needs follow up]
Echo:
1. Small left ventricle with mild left ventricular hypertrophy and preserved systolic function, ejection fraction 55-60%.
2. Mild mitral leaflet thickening with trace mitral regurgitation and normal left atrium.
3. Normal aortic valve.
4. Normal right heart, pulmonary artery systolic pressure 25 mmHg.
5. The aorta at the sinuses of Valsalva is 4.0 cm.
6. There are no prior studies available for comparison.
ECG:
SINUS TACHYCARDIA
INFERIOR INFARCT , AGE UNDETERMINED
ABNORMAL ECG
WHEN COMPARED WITH ECG OF 18-Nov-2024 18:34,
INFERIOR INFARCT IS NOW PRESENT
T WAVE INVERSION NOW EVIDENT IN INFERIOR LEADS
Hospital course by Problem with Plan:
1. fever, unclear etiology - resolved
COVID/influenza negative, Monospot test negative
CT CAP unrevealing, no PE, no pneumonia, no acute inflammatory process within the AP
CT head from 11/18 was unrevealing
One set blood culture from admission showed CONS (likely contaminant), other set negative so far
follow repeat blood culture
ID consult stated:
'- Had one temperature of 101.7 F (Oral) in the ED but since then has not had any recorded fevers
- Continues to have chills but no specific source of infection seen.
- No urinary symptoms, no pneumonia seen on CT, no wounds, no abdominal pain at this time.
- Blood culture results consistent with contamination.
- Discontinue further antibiotics and observe.'
2. Chest discomfort , resolved, and patient requests to go home
H/o ACS s/p several cardiac stents
Mild troponin elevation suspect non-ischemic myocardial injury
0.024 --> 0.023 --> 0.015
Pt states that he has a nuclear stress test scheduled as an outpt
echo was unrevealing (see above):
Cardiology consult stated:
'At the time my evaluation patient tells me he is chest pain-free
Troponin has been within normal limits x 3
ECGs are not acutely ischemic
Discussed with patient, he has a stress test scheduled through his primary business mail entry clerk within the next 2 weeks
Recommended he complete the stress test as planned and follow-up with his primary business mail entry clerk for additional evaluation and management.'
The patient agrees with this plan and stated he would like to go home today
He has capacity to make this choice
3. History of anxiety/autism - chronic
s/p Ativan given in ER
We Continued the Cymbalta,
We Continued lorazepam adjusted to 1 mg Q4H PRN
4. Acute transaminitis, likely reactive
Monitor LFT as outpatient
5. Hypokalemia - resolved, today 3.8
THis was repleted by IV (pt declined PO supplement)
6. Essential HTN - chronic
We Continued the diltiazem XR 120 mg daily
We placed Holding INTENSIVE CARE NURSE Aldactone-HCTZ
Resume usual meds at discharge
7. NIDDM with reasonable inpatient control, today was 114
We Covered with Accu-Cheks with SSI,
We checked HgbA1c - 6.5, continue outpatient managament
We Held the Jardiance / INTENSIVE CARE NURSE Mounjaro
Resume usual meds at discharge
8. HLD - chromic
intolerant of statins, was on Praluent in outpt setting, recently switched to Repatha, hasn't started yet.
Outpatient follow up recommended
9. Hypothyroidism - chronic
We Continued Synthroid 125 mcg p.o. daily
10. Obesity with BMI 36.5 - chronic
Continue outpatient management
11. chronic abdominal pain thought to be from GLP-1 medications over the past 10 to 15 years.
He was seen in [facility] ED 11/18/2024 and had an ultrasound showing cholelithiasis without cholecystitis.
Continue outpatient management - see CT results above.
Adenopathy seen on CT
Outpatient follow up needed for the adenopathy
Discharge summary to be sent to PCP
12. Seasonal allergies - chronic
Continue INTENSIVE CARE NURSE cetirizine 10 mg daily PRN and nasal spray PRN
DVT prophylaxis while in hospital: Lovenox SQ
Full code while in hospital
Day of discharge exam:
General: Well Developed, Well Nourished, No Apparent Distress, Comfortable, Conversant and Obese; Negative Respiratory Distress
HEENT: Normocephalic, Atraumatic, Nose Appears Normal and Ears Appear Normal; Negative Oxygen
Respiratory: Clear to Auscultation and Non Labored Respirations; Negative Accessory Resp Muscle Use
Cardiac: Regular Rhythm and S1/S2
GI: Soft, Nontender, Nondistended and Normal Bowel Sounds
Skin: Warm and Dry
Neuro: Awake, Alert, Oriented, AO x 3 and Nonfocal/Grossly Intact
Psych: Calm and Intact Judgement/Insight
Discharge Plan
-
Patient Disposition: Home (Routine Discharge)
Discharge Diagnosis/Procedures: Chest pain and fever
Condition: Good
Diet: As tolerated
Activity: As tolerated
Driving Restrictions: As prior to admission
Bathing Restrictions: None
Others Tests: Final Blood cultures pending
CT showed abdominal adenopathy - this needs follow up by PCP
Referrals:
Andrea Flores MD [Family Provider]
Prescriptions:
Continued
spironolacton-hydrochlorothiaz 25-25 mg tablet
1 tab PO DAILY
levothyroxine [Synthroid] 125 mcg tablet
125 mcg PO DAILY
diltiazem HCl [DILT-XR] 120 mg capsule,ext.rel 24h degradable
120 mg PO DAILY
aspirin 81 mg Tablet,Chewable
81 mg PO DAILY
lorazepam 1 mg tablet
1 mg PO DAILYPRN PRN (Reason: anxiety)
duloxetine 60 mg capsule,delayed release(DR/EC)
60 mg PO BID
icosapent ethyl 1 gram capsule
1 g PO BID
Jardiance 25 mg tablet
25 mg PO DAILY
Mounjaro 7.5 mg/0.5 mL pen injector
7.5 mg SC FR
cetirizine 10 mg Tablet
10 mg PO DAILY PRN (Reason: ALLERGIES)
Theragen Tablet
1 tab PO DAILY
cyanocobalamin (vitamin B-12) [Vitamin B-12] 1,000 mcg/mL Solution
100 mcg IM QMONTH
fluticasone propionate 50 mcg/actuation [place],Suspension
1 spray INTRANASAL DAILY PRN (Reason: CONGESTION)
coenzyme Q10 [Co Q-10] 200 mg Capsule
200 mg PO DAILY
cholecalciferol (vitamin D3) [Vitamin D3] 25 mcg (1,000 unit) Tablet
25 mcg PO DAILY
Discharge Orders:
Discharge Patient (As Directed); Ordered 11/24/24
Ordered By: Abelino Sanchez
Discharge Date and Time
Print Language: GREENLANDIC
== END 2024-11-24 15:31 | disposition home or self-care (01) | DRG 864 ==
LOC: 4 WEST ACU 09:53
PROVIDERS: Clinical Nurse Specialist Family Health; ADMITTING PHYSICIAN Internal Medicine; ATTENDING PHYSICIAN Internal Medicine; CONSULT PHYSICIAN Internal Medicine Infectious Disease; EMERGENCY PHYSICIAN Emergency Medicine; FAMILY PHYSICIAN Hospitalist; OTHER PHYSICIAN Internal Medicine Cardiovascular Disease
DX: R50.9 Fever, unspecified (principal); F84.0 Autistic disorder; I5A Non-ischemic myocardial injury (non-traumatic); I10 Essential (primary) hypertension; R07.89 Other chest pain; I25.10 Atherosclerotic heart disease of native coronary artery without angina pectoris; E78.5 Hyperlipidemia, unspecified; F41.9 Anxiety disorder, unspecified; F90.9 Attention-deficit hyperactivity disorder, unspecified type; E66.812 Obesity, class 2; E83.42 Hypomagnesemia; E11.9 Type 2 diabetes mellitus without complications; E87.6 Hypokalemia; E03.9 Hypothyroidism, unspecified; J30.2 Other seasonal allergic rhinitis; G89.29 Other chronic pain; R10.9 Unspecified abdominal pain; R45.1 Restlessness and agitation; E86.9 Volume depletion, unspecified; K57.30 Diverticulosis of large intestine without perforation or abscess without bleeding; R74.01 Elevation of levels of liver transaminase levels; K76.0 Fatty (change of) liver, not elsewhere classified; Z11.52 Encounter for screening for COVID-19; Z68.36 Body mass index [BMI] 36.0-36.9, adult; Z79.82 Long term (current) use of aspirin; Z79.84 Long term (current) use of oral hypoglycemic drugs; Z79.890 Hormone replacement therapy; Z79.899 Other long term (current) drug therapy; Z79.85 Long-term (current) use of injectable non-insulin antidiabetic drugs; Z87.891 Personal history of nicotine dependence; Z95.5 Presence of coronary angioplasty implant and graft
CPT/HCPCS: 71260; 74177; 80048; 80053; 80202; 81003; 82248; 82962; 83036; 83605; 83735; 84484; 85025; 85027; 85610; 85730; 86308; 87040; 87147; 87154; 87205; 87502; 87811; 93005; 93306; 96365; 96375; 99285; Q9967